=== PATIENT | male | born 1965 | race Caucasian/White ===

== ENCOUNTER 2022-11-09 01:30 | Emergency (ER) | payer BC ==
[2022-11-09 01:50] LABS: BASOPHILS ABSOLUTE AUTO 0.01 K/mm3 (0.01-0.08); BASOPHILS PERCENT AUTO 0.1 % (0.1-1.2); EOSINOPHILS ABSOLUTE AUTO 0.11 K/mm3 (0.04-0.54); EOSINOPHILS PERCENT AUTO 1.6 (0.8-7.0); HEMATOCRIT 47.6 % (40.1-51.0); HEMOGLOBIN 16.1 gm/dl (13.7-17.5); IMMATURE GRAN ABSOLUTE AUTO 0.01 K/mm3 (0.00-0.10); IMMATURE GRAN PERCENT AUTO 0.1 % (<=1.0); LYMPHOCYTES ABSOLUTE AUTO 2.64 K/mm3 (1.32-3.57); LYMPHOCYTES PERCENT AUTO 37.2 % (21.8-53.1); MEAN CORPUSCULAR HEMOGLOBIN 29.6 pg (25.7-32.2); MEAN CORPUSCULAR HGB CONC 33.8 g/dl (32.2-35.5); MEAN CORPUSCULAR VOLUME 87.5 fl (79.0-92.2); MEAN PLATELET VOLUME 10.2 fl (9.4-12.3); MONOCYTES ABSOLUTE AUTO 0.44 K/mm3 (0.30-0.82); MONOCYTES PERCENT AUTO 6.2 % (5.3-12.2); NEUTROPHILS ABSOLUTE AUTO 3.88 K/mm3 (1.78-5.38); NEUTROPHILS PERCENT AUTO 54.8 % (34.0-67.9); PLATELET COUNT,PLT 207 K/mm3 (163-337); RED BLOOD CELL COUNT 5.44 M/mm3 (4.63-6.08); WHITE BLOOD CELL COUNT,WBC 7.09 K/mm3 (4.23-9.07)
[2022-11-09 02:33] LABS: A/G RATIO 1.2 (1-2); ALBUMIN 4.2 g/dl (3.4-5.0); ANION GAP 9.8 (5-15); BILIRUBIN TOTAL 0.8 mg/dL (0.2-1.0); CALCIUM 9.2 mg/dL (8.5-10.1); EST CRCL DRUG DOSING (CG) 70.9 mL/min; POTASSIUM,K 3.8 mEq/L (3.5-5.1); PROTEIN TOTAL,TP 7.6 g/dl (6.4-8.2)
== END 2022-11-09 03:37 | disposition home or self-care (01) ==
LOC: JD.ED 01:30
DX: I49.3 Ventricular premature depolarization (principal)
CPT/HCPCS: 36415; 71045; 71045-26; 80053; 83735; 84484; 85025; 93005; 93010; 99284; 99285

== ENCOUNTER 2023-09-23 03:16 | Emergency (ER) | payer BC ==
[2023-09-23 04:00] LABS: BASOPHILS PERCENT AUTO 0.2 % (0.0-1.0); EOSINOPHILS PERCENT AUTO 0.2 % (0.0-6.0); HEMATOCRIT 43.3 % (42.0-52.0); IMMATURE GRAN ABSOLUTE AUTO 0.02 K/mm3 (0.00-0.05); IMMATURE GRAN PERCENT AUTO 0.3 % (0.0-0.4); LYMPHOCYTES ABSOLUTE AUTO 1.6 K/mm3 (1.0-4.8); LYMPHOCYTES PERCENT AUTO 26.1 % (24.0-44.0); MEAN CORPUSCULAR HEMOGLOBIN 30.3 pg (28.0-32.0); MEAN CORPUSCULAR HGB CONC 34.6 g/dl (32.0-36.0); MEAN CORPUSCULAR VOLUME 87.5 fl (83.0-99.0); MEAN PLATELET VOLUME 9.6 fl (9.4-12.4); MONOCYTES ABSOLUTE AUTO 0.4 K/mm3 (0.0-0.8); MONOCYTES PERCENT AUTO 7.2 % (0.0-8.0); PLATELET COUNT,PLT 191 K/mm3 (150-400); RED BLOOD CELL COUNT 4.95 M/mm3 (4.52-5.90); WHITE BLOOD CELL COUNT,WBC 6.01 K/mm3 (3.9-11.3)
== END 2023-09-23 05:00 | disposition home or self-care (01) ==
LOC: JD.ED 03:16
DX: M54.42 Lumbago with sciatica, left side (principal); Z79.899 Other long term (current) drug therapy
CPT/HCPCS: 36415; 72100; 72100-26; 73502-26-LT; 73502-LT; 85025; 85379; 86140; 99283